=== PATIENT | male | born 1970 | race Caucasian/White ===

== ENCOUNTER 2017-04-26 15:09 | Emergency (ER) | payer MEDICAID, OTHER ==
[2017-04-26] MEDS ORDERED: oxyCOD/ACETAMIN 5 MG/325 MG TABLET PO STA (15:28)
--- NOTE | 2017-04-26 15:39 | ED Physician Documentation ---
PD HPI UPPER EXT INJURY - Stated complaint Stated Complaint: R HAND INJ - Chief complaint Chief Complaint: Ext Problem - History obtained from History obtained from: Patient - History of Present Illness Location: Right, Hand Type of injury: Crush (dump truck) Where injury occurred: Home Timing - onset: Today Timing - duration: Hours (1) Timing - details: Abrupt onset Pain level max: 8 Pain level now: 8 Improved by: Rest, Ice, Immobilization Worsened by: Moving, Palpating Associated symptoms: Swelling. No: Weakness, Numbness, Tingling Contributing factors: No: Anticoagulated, Prior ortho surgery, Prosthetic joint Recently seen: Not recently seen - Additonal information Additional information: pt is right handed Review of Systems Constitutional: denies: Fever, Chills Ears: denies: Ear pain Nose: denies: Rhinorrhea / runny nose, Congestion Respiratory: denies: Cough GI: denies: Abdominal Pain, Nausea, Vomiting, Diarrhea Skin: denies: Rash Musculoskeletal: denies: Neck pain, Back pain Neurologic: denies: Focal weakness, Numbness, Headache PD PAST MEDICAL HISTORY - Past Medical History Past Medical History: Yes Cardiovascular: High cholesterol Neuro: Headache/migraine - Past Surgical History Past Surgical History: Yes General: Hiatal hernia repair - Present Medications Home Medications: Ambulatory Orders Medication Instructions Recorded Confirmed Cephalexin [Keflex] 500 mg PO Q6H #28 capsule 04/26/17 Cyclobenzaprine [Flexeril] 10 mg PO DAILY 04/26/17 04/26/17 Levothyroxine [Synthroid] 25 mcg PO DAILY 04/26/17 04/26/17 Oxycodone HCl/Acetaminophen 1 - 2 each PO Q6H PRN #10 tablet 04/26/17 [Percocet 5-325 mg Tablet] Simvastatin 10 mg PO DAILY 04/26/17 04/26/17 - Allergies Allergies/Adverse Reactions: Allergies Allergy/AdvReac Type Severity Reaction Status Date / Time cillins Allergy Edema Uncoded 04/26/17 16:00 - Social History Does the pt smoke?: No Smoking Status: Never smoker - Immunizations Immunizations are current?: Yes PD ED PE NORMAL - Vitals Vital signs reviewed: Yes - General General: Alert and oriented X 3, No acute distress - Derm Derm: Warm and dry - Extremities Extremities: Other (R hand - diffuse TTP. R 5th digit with 1 laceration and 1 abrasion. Laceartion over dorsum of the prox phalanx. NVI. FROM present. no deformity.) - Neuro Neuro: Alert and oriented X 3 - Psych Psych: Normal mood, Normal affect Results - Vitals Vitals: Vital Signs - 24 hr 04/26/17 04/26/17 15:17 16:41 Temperature 36.4 C L 36.7 C Heart Rate 68 64 Respiratory 18 18 Rate Blood Pressure 127/84 H 139/94 H O2 Saturation 97 98 Oxygen O2 Source Room air - Rads (name of study) R hand xray Radiology: Prelim report reviewed, EMP read contemporaneously, See rad report ( Laceration at the base of the fifth digit with associated underlying type avulsion/crush injury of the fifth proximal phalanx.) Procedures - Laceration (location) Right fifth digit Length in cm: 3 Wound type: Curved, Into subcut fat, Clean Neurovascular status: Sensory intact, Motor intact, Vascular intact Tendon involvement: Tendon intact. No: Tendon Injury Anesthesia: Lidocaine 2% Wound Preparation: Irrigated copiously NS (500), Wound explored, To the base Skin layer closure: Nylon, Interrupted, Size #-0 - enter number (4), Sutures - enter # (6) Other: Patient tolerated well, No complications Complexity: Simple PD MEDICAL DECISION MAKING - ED course Complexity details: reviewed results, re-evaluated patient, considered differential, d/w patient ED course: Patient is a 46-year-old male who presents to the emergency department after his hand was crushed in between a tailgate and a dump truck tailgate he was wearing leather gloves at the time. Laceration was repaired. Tolerated well. Does have associated crush injuries, but no distinct fracture of the right fifth digit. Started on antibiotics here and will place on antibiotics for home. Warnings of infection and instructions on wound care given at bedside. Also counseled on how to minimize scarring. Patient counseled regarding signs and symptoms for which I believe and urgent re-evaluation would be necessary. Patient with good understanding of and agreement to plan and is comfortable going home at this time This document was made in part using voice recognition software. While efforts are made to proofread this document, sound alike and grammatical errors may occur. Tetanus up-to-date Departure - Departure Disposition: 01 Home, Self Care Clinical Impression: Crush injury Laceration of finger Qualifiers: Encounter type: initial encounter Finger: little finger Damage to nail status: without damage Foreign body presence: without foreign body Laterality: right Qualified Code(s): S61.216A - Laceration without foreign body of right little finger without damage to nail, initial encounter Condition: Good Instructions: ED Laceration Hand Follow-Up: your,doctor friday as scheduled [Other] Prescriptions: Cephalexin [Keflex] 500 mg PO Q6H #28 capsule Oxycodone HCl/Acetaminophen [Percocet 5-325 mg Tablet] 1 - 2 each PO Q6H PRN # 10 tablet PRN Reason: pain Comments: Return if you worsen. The stitches should be removed in 10-14 days with your doctor. Monitor for redness, swelling, drainage or worsening pain. Return for any of these. Do not drink alcohol or drive while on narcotic pain medicine. Note that many narcotic pain relievers also contain tylenol/acetaminophen. Please ensure that your total dose of acetaminophen from all sources does not exceed 3 grams (3000mg) per day. You may constipated on this medication, take a stool softener such as "Colace" twice a day while you are on it. Also recommend a xesa-[id number] laxative such as senna or MiraLAX any day that you do not have a bowel movement. If you received narcotic pain medication in the emergency department, do not drive or operate machinery for the next 24 hours. Discharge Date/Time: 04/26/17 16:40
[2017-04-26] MEDS ORDERED: oxyCOD/ACETAMIN 5 MG/325 MG TABLET PO ONE (15:47)
[2017-04-26] MEDS ORDERED: LIDOCAINE 2% 10 ML MDV SUBQ STA (15:54)
--- NOTE | 2017-04-26 15:55 | XRAY Preliminary Report ---
Exam: XR Hand 3 View RT IMPRESSION: Laceration at base of the fifth digit, with associated underlying type avulsion/crush inj ury of the fifth proximal phalanx. [facility] SITE ID: [id number]
--- NOTE | 2017-04-26 15:57 | XRAY Report ---
EXAM: RIGHT HAND RADIOGRAPHY EXAM DATE: 04/26/2017 03:47 PM. CLINICAL HISTORY: Right hand smashed in dump truck tailgate. Fifth digit pain. COMPARISON: None. TECHNIQUE: 3 views. FINDINGS: Bones: Subtle cortical irregularity and avulsion fragments along the palmar/lateral margin of the fif th proximal phalangeal diaphysis. No underlying fracture lucency is seen. Joints: Normal. No subluxations. Soft Tissues: Soft tissue swelling and emphysema overlying the base of the first digit, compatible wi th laceration. IMPRESSION: Laceration at base of the fifth digit, with associated underlying type avulsion/crush inj ury of the fifth proximal phalanx. [facility] Referring Provider Line: [phone] SITE ID: [id number]
[2017-04-26] MEDS ORDERED: LIDOCAINE 2% 10 ML MDV ONE (15:58)
[2017-04-26] MEDS ORDERED: CEPHALEXIN 250 MG CAPSULE PO STA (16:21)
[2017-04-26] MEDS ORDERED: CEPHALEXIN 250 MG CAPSULE PO ONE (16:26)
[2017-04-26 16:42] VITALS: BP 139/94
== END 2017-04-26 16:40 | disposition home or self-care (01) ==
LOC: ED 15:09
DX: S61.216A Laceration without foreign body of right little finger without damage to nail, initial encounter (principal); W23.0XXA Caught, crushed, jammed, or pinched between moving objects, initial encounter; Y92.017 Garden or yard in single-family (private) house as the place of occurrence of the external cause; E78.00 Pure hypercholesterolemia, unspecified
CPT/HCPCS: 12002; 73130; 99283; A9270